=== PATIENT | female | born 1990 | race Caucasian/White ===

== ENCOUNTER 2016-12-10 09:31 | Emergency (ER) | payer SELFPAY ==
[~2016-12-10] VITALS: Ht 149.9 cm; Wt 98.9 kg
[2016-12-10 09:38] VITALS: BP 128/73
--- NOTE | 2016-12-10 09:42 | NUR ---
Patient ambulated to bed 3 with family. RN evaluating patient at bedside.
--- NOTE | 2016-12-10 09:45 | NUR ---
PATIENT PRESENTS TO ED WITH LOWER BACK PAIN X1 DAY S/P PICKING UP HER SON. DENIES N/V/D; SKIN IS PINK/WARM/DRY; AAOX4 WITH EVEN AND STEADY GAIT; LUNGS CLEAR BL; HR EVEN AND REGULAR; PT DENIES ANY FEVER, CP, SOB, OR COUGH AT THIS TIME; PATIENT STATES PAIN OF 10/10 AT THIS TIME; VSS; PATIENT POSITIONED FOR COMFORT; HOB ELEVATED; BEDRAILS UP X2; BED DOWN. ER MD MADE AWARE OF PT STATUS.
[2016-12-10 10:42] VITALS: BP 126/72
[2016-12-10 10:48] LABS: BILIRUBIN,URINE NEGATIVE (NEGATIVE); BLOOD, URINE NEGATIVE (NEGATIVE); COLOR,URINE YELLOW (YELLOW); LEUKOCYTE ESTERASE ,URINE NEGATIVE (NEGATIVE); NITRITE, URINE NEGATIVE (NEGATIVE); PH,URINE 5.5 (5.0-9.0); PROTEIN,URINE NEGATIVE (NEGATIVE); UGLUCOSE NEGATIVE (NEGATIVE); UROBILINOGEN,URINE 0.2 EU/dL (0.2 - 1)
[2016-12-10 11:04] LABS: APPEARANCE,URINE SLIGHTLY HAZY (CLEAR)
[2016-12-10 11:06] LABS: BACTERIA,URINE OCCASSIONAL /HPF (None Seen); RBC,URINE NONE SEEN /HPF (0-5); WBC,URINE 0-5 (RARE) /HPF (0-5)
== END 2016-12-10 10:42 | disposition home or self-care (01) ==
LOC: MED 09:31
DX: G89.29 Other chronic pain (principal); M54.5 Low back pain; I25.2 Old myocardial infarction
CPT/HCPCS: 72100; 81001; 81025; 99285

== ENCOUNTER 2019-05-07 16:32 | Emergency (ER) | payer SELFPAY ==
[~2019-05-07] VITALS: Ht 149.9 cm; Wt 106.7 kg
[2019-05-07 16:35] VITALS: BP 139/82
--- NOTE | 2019-05-07 17:25 | NUR ---
C/O UTI S/S X 3 DAYS. PAIN 7/10 HX-NONE NKA MEDS-AZO SKIN IS INTACT, PINK/WARM/DRY; AAOX4, PERRL, WITH EVEN AND STEADY GAIT; LUNGS CLEAR BL, BREATHING UNLABORED; HR EVEN AND REGULAR, BL PERIPHERAL PULSES PRESENT; BS ACTIVE X4. RESONANT TO PERCUSSION; PT DENIES ANY FEVER, CP, SOB, OR COUGH AT THIS TIME; PT STATES 5/10 PAIN AT THIS TIME; VSS; PATIENT POSITIONED FOR COMFORT; HOB ELEVATED; BEDRAILS UP X2; BED DOWN.
[2019-05-07 18:15] LABS: APPEARANCE,URINE CLOUDY (CLEAR); BILIRUBIN,URINE 2+ (NEGATIVE); BLOOD, URINE 3+ (NEGATIVE); COLOR,URINE RED (YELLOW); LEUKOCYTE ESTERASE ,URINE 3+ (NEGATIVE); NITRITE, URINE POSITIVE (NEGATIVE); PH,URINE 7.5 (5.0-9.0); UGLUCOSE TRACE (NEGATIVE)
[2019-05-07 18:19] VITALS: BP 127/76
--- NOTE | 2019-05-07 18:23 | NUR ---
Patient discharged with v/s stable. Written and verbal after care instructions given and explained. Patient alert, oriented and verbalized understanding of instructions. Ambulatory with steady gait. All questions addressed prior to discharge. ID band removed. Patient advised to follow up with PMD. Rx of PYRIDIUM, MACROBID given. Patient educated on indication of medication including possible reaction and side effects. Opportunity to ask questions provided and answered.
[2019-05-07 18:31] LABS: RBC,URINE TOO NUMEROUS TO COUN /HPF (0-5); WBC,URINE 20-60 /HPF (0-5)
--- NOTE | 2019-05-09 14:58 | NUR ---
URINE CULTURED REVIEWED. PT TREATED WITH APPOPRIATE MEDICATION.
== END 2019-05-07 18:23 | disposition home or self-care (01) ==
LOC: MED 16:32
DX: N39.0 Urinary tract infection, site not specified (principal); I25.2 Old myocardial infarction; Z98.890 Other specified postprocedural states
CPT/HCPCS: 81001; 81025; 87086; 87186; 99283

== ENCOUNTER 2021-03-17 23:30 | Emergency (ER) | payer SELFPAY ==
[~2021-03-17] VITALS: Ht 152.4 cm; Wt 106.1 kg
[2021-03-18 00:10] VITALS: BP 159/92
--- NOTE | 2021-03-18 01:23 | NUR ---
TO BED AMBULATORY
--- NOTE | 2021-03-18 01:30 | NUR ---
PATIENT PRESENTS TO ED WITH C/O RASH AND ITCHING . PT STATES I'VE BEEN SCRATCHING . DENIES N/V/D; RASH WITH SCRATCHING AAOX4 WITH EVEN AND STEADY GAIT; LUNGS CLEAR BL; HR EVEN AND REGULAR; PT DENIES ANY FEVER, CP, SOB, OR COUGH AT THIS TIME; VSS; PATIENT POSITIONED FOR COMFORT; HOB ELEVATED; BEDRAILS UP X2; BED DOWN. ER MD MADE AWARE OF PT STATUS.
[2021-03-18] MEDS ORDERED: methylPREDNISolone SS 125 MG/2 ML VIAL IVP ONE (01:45)
[2021-03-18] MEDS ORDERED: diphenhydrAMINE 50 MG/ML VIAL IM ONE (01:45)
[2021-03-18] MEDS ORDERED: CLOT1CRE90 TP (01:51)
[2021-03-18] MEDS ORDERED: MUPI2CRE22 TP (01:51)
[2021-03-18] MEDS ORDERED: ATA25 PO (01:51)
[2021-03-18] MEDS ORDERED: SULF-59 PO (01:51)
[2021-03-18] MEDS ORDERED: CEPH-588 PO (01:51)
[2021-03-18] MEDS ORDERED: HYD1C TP (01:55)
--- NOTE | 2021-03-18 02:13 | NUR ---
MEDICATED PER ERMDS ORDER, TOLERATED WELL, BENADRYL WAS GIVEN IVP ERMD NOTED
[2021-03-18 03:00] VITALS: BP 132/80
--- NOTE | 2021-03-18 03:00 | NUR ---
Patient discharged with v/s stable. Written and verbal after care instructions given and explained. Patient alert, oriented and verbalized understanding of instructions. Ambulatory with steady gait. All questions addressed prior to discharge. ID band removed. Patient advised to follow up with PMD. Rx of KEFLEX ATARAX, CLOTRIMAZOLE, MUPIROCIN, BACTRIM DS, given. Patient educated on indication of medication including possible reaction and side effects. Opportunity to ask questions provided and answered.
== END 2021-03-18 03:00 | disposition home or self-care (01) ==
LOC: MED 23:30
DX: L20.9 Atopic dermatitis, unspecified (principal); L98.9 Disorder of the skin and subcutaneous tissue, unspecified; I25.2 Old myocardial infarction
CPT/HCPCS: 96372; 96374; 99284; J1200; J2930

== ENCOUNTER 2021-03-22 03:35 | Inpatient (IN) | payer MEDICAID, SELFPAY ==
[~2021-03-22] VITALS: Ht 149.9 cm; Wt 107.5 kg
[~2021-03-22 03:35] MED LIST: ATA25 PO; CEPH-588 PO; CLOT1CRE90 TP; HYD1C TP; MUPI2CRE22 TP; SULF-59 PO
[2021-03-22 03:40] VITALS: BP 124/75
--- NOTE | 2021-03-22 03:40 | NUR ---
TO BED AMBULATORY
--- NOTE | 2021-03-22 03:45 | NUR ---
REDNESS , SWELLING PAIN ON BILATERAL LEGS FOR 3 DAYS, S/P INSECT BITES. PATIENT ALSO HAS RASHES AND SWELLING ON NECK AND LEFT ARM. PATIENT 10/10 PAIN THAT IS BURNING AND THROBBING. BEHIND THE KNEES, PATIENT HAD SOME OOZING. PATIENT REPORTS IT HAS BEEN GOING ON FOR 3WKS AND HAS CONTINUED TO WORSEN EVEN WITH ANTIBIOTICS. PATIENT DENIES TAKING ANY PAIN MEDICATION. AAOX4. PMH DENIES NKA
[2021-03-22] MEDS ORDERED: ONDANSETRON 4 MG/2 ML VIAL IVP ONE (04:05)
[2021-03-22] MEDS ORDERED: MORPHINE SULFATE 4 MG/ML SYR IVP ONE (04:05)
[2021-03-22] MEDS ORDERED: VANCOMYCIN 1,000 MG in DEXTROSE 5% 250 ML IV ONE (04:05)
[2021-03-22 04:39] LABS: BASOPHILS # (AUTO) 0.1 K/uL (0.00-0.22); EOSINOPHILS # (AUTO) 1.1 K/uL (0-0.4); EOSINOPHILS % (AUTO) 9.5 % (0.0-4.0); HEMATOCRIT 40.6 % (36-48); HEMOGLOBIN 13.7 g/dL (12.0-16.0); LYMPHOCYTES # (AUTO) 3.3 K/uL (2.5-16.5); LYMPHOCYTES % (AUTO) 29.2 % (20.5-51.1); MEAN CORPUSCULAR HEMOGLOBIN 30 pg (27-31); MEAN CORPUSCULAR HGB CONC 34 g/dL (33-37); MEAN CORPUSCULAR VOLUME 88.5 fL (80-94); MONOCYTES # (AUTO) 0.8 K/uL (0.8-1.0); MONOCYTES % (AUTO) 6.7 % (1.7-9.3); NEUTROPHILS # (AUTO) 6.1 K/uL (1.8-7.7); NEUTROPHILS % (AUTO) 53.6 % (42.2-75.2); PLATELET COUNT (AUTO) 473 K/uL (140-450); RED BLOOD CELL COUNT(AUTO) 4.59 MIL/uL (4.20-5.40); RED CELL DISTRIBUTION WIDTH 12.8 % (11.6-13.7); WHITE BLOOD COUNT (AUTO) 11.3 K/uL (4.8-10.8)
--- NOTE | 2021-03-22 04:45 | NUR ---
patient to bathroom
[2021-03-22] MEDS ORDERED: KETOROLAC 30 MG/ML VIAL IVP ONE (04:50)
[2021-03-22] MEDS ORDERED: cefTRIAXone 1,000 MG VIAL ONE (04:54)
[2021-03-22 04:55] LABS: ALBUMIN 3.5 g/dL (3.4-5.0); CARBON DIOXIDE 24.3 mmol/L (21-32); POTASSIUM 3.3 mmol/L (3.5-5.1); TOTAL BILIRUBIN 0.9 mg/dL (0.0-1.0)
[2021-03-22] MEDS ORDERED: VANCOMYCIN 1,000 MG VIAL ONE (05:45)
--- NOTE | 2021-03-22 05:56 | NUR ---
Patient appears to be resting comfortably in bed. Vital Signs within normal limits. Respirations even and unlabored. Safety measures are in place. Will continue to monitor patient
--- NOTE | 2021-03-22 07:12 | NUR ---
Report and continuation of care received from FREDY [place].
--- NOTE | 2021-03-22 07:20 | NUR ---
Patient resting in position of comfort; denies any pain at this time. VSS. distributor advertising material in place. Bed locked in lowest position, side rails x 1, call light in reach.
[2021-03-22] MEDS ORDERED: ACETAMINOPHEN 325 MG TAB PO PRN (08:15)
[2021-03-22] MEDS ORDERED: guaiFENesin DM 200/20 MG-10 ML 10 ML UDC PO PRN (08:15)
[2021-03-22] MEDS ORDERED: DOCUSATE SODIUM 100 MG GELCAP PO PRN (08:15)
[2021-03-22] MEDS ORDERED: HYDROcodone/APAP 7.5/325 MG 1 TAB PO PRN (08:15)
[2021-03-22] MEDS ORDERED: POTASSIUM CHLORIDE 10 MEQ TABER PO PRN (08:15)
--- NOTE | 2021-03-22 08:45 | NUR ---
Provided with water cup for urine sample. Patient states unable to void at this time.
--- NOTE | 2021-03-22 08:51 | NUR ---
Patient ambulated to restroom with steady/even gait for urine sample.
--- NOTE | 2021-03-22 08:56 | NUR ---
MRSA swab and UA collected, handed to Misael, CPT at ER bedside.
--- NOTE | 2021-03-22 09:14 | NUR ---
Dr. Nathan is evaluating the patient at bedside.
[2021-03-22 09:24] LABS: APPEARANCE,URINE CLEAR (CLEAR); BILIRUBIN,URINE NEGATIVE (NEGATIVE); BLOOD, URINE NEGATIVE (NEGATIVE); COLOR,URINE YELLOW (YELLOW); LEUKOCYTE ESTERASE ,URINE NEGATIVE (NEGATIVE); NITRITE, URINE NEGATIVE (NEGATIVE); PH,URINE 6.5 (5.0-9.0); UGLUCOSE NEGATIVE (NEGATIVE)
--- NOTE | 2021-03-22 09:30 | NUR ---
Patient resting in position of comfort; denies any pain at this time. VSS. front desk monitor in place. Bed locked in lowest position, side rails x 1, call light in reach.
--- NOTE | 2021-03-22 09:33 | NUR ---
farm equipment service technician at bedside.
[2021-03-22] MEDS: NACL 0.9% 1,000 ML IV SCH ×2 (09:38→18:51)
[2021-03-22] MEDS: CLINDAMYCIN 900 MG in DEXTROSE 5% 100 ML IV SCH ×3 (09:38→20:41)
[2021-03-22] MEDS: PANTOPRAZOLE 40 MG TABEC PO SCH (10:03)
[2021-03-22 10:29] LABS: BARBITURATE, URINE NEGATIVE ng/ml (NEG <=200); BENZODIAZEPINE, URINE NEGATIVE ng/mL (NEG <=200); CANNABINOID, URINE POSITIVE ng/mL (NEG <=50); COCAINE, URINE NEGATIVE ng/mL (NEG <=300); OPIATE, URINE NEGATIVE ng/mL (NEG <=2000); PHENCYCLIDINE SCREEN,URINE NEGATIVE ng/mL (NEG <=25)
--- NOTE | 2021-03-22 10:30 | NUR ---
Patient resting in position of comfort; denies any pain at this time. VSS. asphalt layer in place. Bed locked in lowest position, side rails x 1, call light in reach.
[2021-03-22] MEDS: LEVOFLOXACIN 750 MG/D5W PREMIX 150 ML IV SCH (10:54)
[2021-03-22 11:07] LABS: CHOL/HDL RATIO 3.9 (1-4.5); FREE T4 (FREE THYROXINE) 0.77 ng/dL (0.76-1.46); MAGNESIUM 2.1 mg/dL (1.8-2.4); PHOSPHORUS 3.4 mg/dL (2.5-4.9); THYROID STIMULATING HORMONE 1.46 uIU/mL (0.34-3.74)
[2021-03-22 11:37] LABS: PROTHROMBIN TIME 9.1 secs (10.8-13.4)
--- NOTE | 2021-03-22 11:42 | NUR ---
Patient resting in position of comfort semi-fowlers. IVPB ABX continued; telemetry monitor in place. Bed locked in lowest position, side rails x 1, call light in reach.
--- NOTE | 2021-03-22 12:00 | NUR ---
Meal tray at bedside.
--- NOTE | 2021-03-22 12:10 | NUR ---
Patient reports itchiness to neck and left arm. Redness noted. No respiratory distress noted; SpO2 99% on room air. RR 15 even/unlabored. Bed locked in lowest position, side rails x 1, call light in reach.
--- NOTE | 2021-03-22 12:17 | NUR ---
Patient states itchiness symptoms to neck and left arm resolved. Patient completing meal at this time. playground monitor in place; VSS. RR even/unlabored. Bed locked in lowest position, side rails x 1, call light in reach.
--- NOTE | 2021-03-22 12:23 | NUR ---
Patient ambulated to restroom with steady/even gait.
--- NOTE | 2021-03-22 13:30 | NUR ---
Patient resting in position of comfort; denies any pain at this time. VSS. patient monitor in place. Bed locked in lowest position, side rails x 1, call light in reach.
--- NOTE | 2021-03-22 14:28 | NUR ---
Patient resting in position of comfort; denies any pain at this time. VSS. practice clinician in place. Bed locked in lowest position, side rails x 1, call light in reach.
--- NOTE | 2021-03-22 15:40 | NUR ---
Patient with both eyes closed in position of comfort; denies any pain at this time. VSS. nurse monitoring in place. Bed locked in lowest position, side rails x 1, call light in reach.
--- NOTE | 2021-03-22 16:14 | NUR ---
Patient will be admitted to care of Dr. Nathan. Admited to Med-Surg. Will go to room 119-A. Belongings list completed. Report to FREDY Edmondson.
--- NOTE | 2021-03-22 16:14 | NUR ---
Report given to FREDY Edmondson. Advised of 5 minute ETA.
--- NOTE | 2021-03-22 16:14 | NUR ---
Luis () contacted and provided status update and room # 119A.
--- NOTE | 2021-03-22 16:35 | NUR ---
PATIENT RECEIVED VIA WHEELCHAIR BY ED EMT. PATIENT ALERT, ABLE TO MAKE NEEDS, KNOWN. BREATHING EVEN AND UNLABORED, NO SIGNS OF ACUTE DISTRESS NOTED ON RA. SWELLING AND REDNESS NOTED TO BLE, L ARM AND NECK AREA. R AC 20G, SL. ADMITTING VITALS: BP 121/70, HR 60, SPO2 98%, RR 18, TEMP 98.3, DENIES PAIN AT THIS TIME. PATIENT ORIENTED TO UNIT, SAFETY MEASURES IN PLACE.
--- NOTE | 2021-03-22 19:30 | NUR ---
ENDORSED TO NIGHTSHIFT NURSE FOR CONTINUITY OF CARE. PATIENT STABLE AT THIS TIME.
--- NOTE | 2021-03-22 19:31 | NUR ---
RECEIVED PATIENT FROM AM NURSE FOR CONTINUITY OF CARE. PATIENT A/A/O X4. RESPIRATORY EVEN AND UNLABORED, ON ROOM AIR. NO SIGN OF RESPIRATORY DISTRESS NOTED. SKIN WARM, DRY, NON DIAPHORETIC. SWELLING AND REDNESS NOTED ON BILATERAL LOWER EXTREMITIES, LEFT ARM, AND NECK. IV ON RIGHT AC 20G, INTACT AND PATENT, IS INFUSING FLUID ORDER. PATIENT CONTINENT. DENIES ANY PAIN OR DISCOMFORT. ABLE TO MAKE NEEDS KNOWN. PLAN OF CARE DISCUSSED, PATIENT VERBALIZED UNDERSTANDING. CALL LIGHT WITHIN REACH. WILL CONTINUE TO MONITOR.
[2021-03-22 20:00] VITALS: BP 138/62
--- NOTE | 2021-03-22 20:41 | NUR ---
SCHEDULE MEDICATION GIVEN WITH EDUCATION. PATIENT VERBALIZED UNDERSTANDING. CALL LIGHT WITHIN REACH. WILL CONTINUE TO MONITOR.
[2021-03-22] MEDS ORDERED: ZOLPIDEM 5 MG TAB PO PRN (21:00)
--- NOTE | 2021-03-22 22:00 | NUR ---
PATIENT IS AWAKE, RESTING IN BED, NO SIGN OF RESPIRATORY DISTRESS NOTED. CALL LIGHT WITHIN REACH. WILL CONTINUE TO MONITOR.
--- NOTE | 2021-03-23 | NUR ---
PATIENT IS SLEEPING, CHEST RISE AND FALL, NO SIGN OF DISTRESS NOTED. CALL LIGHT WITHIN REACH. WILL CONTINUE TO MONITOR.
--- NOTE | 2021-03-23 02:00 | NUR ---
ROUND CHECK. PATIENT IS SLEEPING, CHEST RISE AND FALL. AROUSABLE TO VOICE. NO SIGN OF DISTRESS NOTED. CALL LIGHT WITHIN REACH. WILL CONTINUE TO MONITOR.
[2021-03-23 04:00] VITALS: BP 115/70
[2021-03-23] MEDS: NACL 0.9% 1,000 ML IV SCH ×2 (04:15→13:58)
[2021-03-23] MEDS: CLINDAMYCIN 900 MG in DEXTROSE 5% 100 ML IV SCH ×3 (05:00→20:39)
--- NOTE | 2021-03-23 05:00 | NUR ---
SCHEDULE MEDICATION GIVEN WITH EDUCATION. PATIENT VERBALIZED UNDERSTANDING. CALL LIGHT WITHIN REACH. WILL CONTINUE TO MONITOR.
[2021-03-23 05:33] LABS: BASOPHILS # (AUTO) 0.1 K/uL (0.00-0.22); BASOPHILS % (AUTO) 0.5 % (0.0-2.0); EOSINOPHILS # (AUTO) 1.4 K/uL (0-0.4); EOSINOPHILS % (AUTO) 14.4 % (0.0-4.0); HEMATOCRIT 40.3 % (36-48); HEMOGLOBIN 13.7 g/dL (12.0-16.0); LYMPHOCYTES # (AUTO) 2.8 K/uL (2.5-16.5); LYMPHOCYTES % (AUTO) 29.3 % (20.5-51.1); MEAN CORPUSCULAR HEMOGLOBIN 30 pg (27-31); MEAN CORPUSCULAR HGB CONC 34 g/dL (33-37); MEAN CORPUSCULAR VOLUME 87.8 fL (80-94); MONOCYTES # (AUTO) 0.7 K/uL (0.8-1.0); MONOCYTES % (AUTO) 7.1 % (1.7-9.3); NEUTROPHILS # (AUTO) 4.7 K/uL (1.8-7.7); NEUTROPHILS % (AUTO) 48.7 % (42.2-75.2); PLATELET COUNT (AUTO) 423 K/uL (140-450); RED BLOOD CELL COUNT(AUTO) 4.59 MIL/uL (4.20-5.40); RED CELL DISTRIBUTION WIDTH 12.8 % (11.6-13.7); WHITE BLOOD COUNT (AUTO) 9.6 K/uL (4.8-10.8)
[2021-03-23 05:40] LABS: ANION GAP 11.4 (8-16); CARBON DIOXIDE 24.9 mmol/L (21-32); CREATININE 0.8 mg/dL (0.6-1.3); POTASSIUM 4.3 mmol/L (3.5-5.1)
[2021-03-23 06:07] LABS: T4 (THYROXINE) 6.2 ug/dL (4.5-12.0)
--- NOTE | 2021-03-23 07:05 | NUR ---
ENDORSED PATIENT TO AM NURSE FOR CONTINUITY OF CARE. PATIENT IS STABLE.
--- NOTE | 2021-03-23 07:10 | NUR ---
RECEIVE REPORT FROM CHEMICAL LABORATORY CHIEF NURSE FOR CONTINUITY OF CARE. PATIENT SLEEPING. BREATHING EVEN AND UNLABORED. ALL SAFETY MEASURES IN PLACE. WILL CONTINUE TO MONITOR.
--- NOTE | 2021-03-23 09:12 | NUR ---
PATIENT HAS BEEN SCREENED AND CATEGORIZED LOW NUTRITION RISK. PATIENT WILL BE SEEN WITHIN 7 DAYS OF ADMISSION. 03/28/[address]
[2021-03-23] MEDS: PANTOPRAZOLE 40 MG TABEC PO SCH (09:18)
[2021-03-23] MEDS: LEVOFLOXACIN 750 MG/D5W PREMIX 150 ML IV SCH (09:19)
--- NOTE | 2021-03-23 09:25 | NUR ---
PATIENT IN BED. ROUTINE MEDICATION GIVEN. PATIENT DENIES PAIN AT THIS TIME. ALL SAFETY MEASURES IN PLACE. WILL CONTINUE TO MONITOR.
--- NOTE | 2021-03-23 12:30 | NUR ---
PATIENT IN BED HAVING LUNCH. NO ACUTE DISTRESS NOTED. ALL SAFETY MEASURES IN PLACE. WILL CONTINUE TO MONITOR.
--- NOTE | 2021-03-23 14:50 | NUR ---
PATIENT ON PHONE. NO ACUTE DISTRESS NOTED. ALL SAFETY MEASURES IN PLACE. WILL CONTINUE TO MONITOR.
[2021-03-23 16:35] VITALS: BP 109/52
--- NOTE | 2021-03-23 16:42 | NUR ---
PATIENT ALERT AND AWAKE. BREATHING EVEN AND UNLABORED. ALL SAFETY MEASURES IN PLACE. WILL CONTINUE TO MONITOR.
[2021-03-23] MEDS ORDERED: HYDROCORTISONE 1% OINT 30 GM TUBE TP PRN (19:00)
--- NOTE | 2021-03-23 19:15 | NUR ---
ENDORSED REPORT TO CLINICAL NURSING MANAGER NURSE FOR CONTINUITY OF CARE. PATIENT STABLE. ALL SAFETY MEASURES IN PLACE.
--- NOTE | 2021-03-23 19:16 | NUR ---
RECEIVED BEDSIDE ENDORSEMENT FROM AM SHIFT RN, PATIENT IS AAOX4, ON ROOM AIR, O2 SAT WNL, IV SITE INTACT, IVF INFUSING, PATENT, W/ REDNESS AT THE BACK OF BOTH KNEES, NECK, LEFT ARM, AMBULATORY, DENIES PAIN, SAFETY MEASURES IN PLACE, PLAN OF CARE DISCUSSED, LOW BED IN PLACE, CALL LIGHT WITHIN REACH.
--- NOTE | 2021-03-23 20:39 | NUR ---
PATIENT IS WATCHING TV, DUE MEDS GIVEN ORDERED, NO TOLERATED WELL, NO A/R NOTED, MED EDUCATION PROVIDED, VERBALIZED UNDERSTANDING, KEPT COMFORTABLE, CALL LIGHT WITHIN REACH.
[2021-03-24] MEDS: NACL 0.9% 1,000 ML IV SCH ×2 (00:17→10:15)
--- NOTE | 2021-03-24 00:23 | NUR ---
Ivf finished, hanged a new bag of NS AT 100ML/HR ORDERED, PATIENT IS ASLEEP.
--- NOTE | 2021-03-24 02:30 | NUR ---
SLEEPING, NOTED CHEST RISE, CALL LIGHT WITHIN REACH.
[2021-03-24 04:00] VITALS: BP 115/69
[2021-03-24] MEDS: ONDANSETRON 4 MG/2 ML VIAL IM/IVP PRN ×2 (05:17→10:05)
[2021-03-24] MEDS: CLINDAMYCIN 900 MG in DEXTROSE 5% 100 ML IV SCH ×2 (05:25→13:35)
--- NOTE | 2021-03-24 05:28 | NUR ---
C/O MILD HEADACHE 11/04, TYLENOL GIVEN PER PT REQUEST. ALSO FEELS NAUSEOUS, ZOFRAN IVP PRN GIVEN ORDERED, DUE MEDS GIVEN ORDERED, NO A/R NOTED, CALL LIGHT WITHIN REACH.
[2021-03-24 05:54] LABS: BASOPHILS # (AUTO) 0.1 K/uL (0.00-0.22); BASOPHILS % (AUTO) 0.6 % (0.0-2.0); EOSINOPHILS # (AUTO) 1.1 K/uL (0-0.4); EOSINOPHILS % (AUTO) 10.1 % (0.0-4.0); HEMATOCRIT 41.2 % (36-48); LYMPHOCYTES # (AUTO) 2.9 K/uL (2.5-16.5); MEAN CORPUSCULAR HEMOGLOBIN 30 pg (27-31); MEAN CORPUSCULAR HGB CONC 34 g/dL (33-37); MEAN CORPUSCULAR VOLUME 88.6 fL (80-94); MONOCYTES # (AUTO) 0.7 K/uL (0.8-1.0); NEUTROPHILS # (AUTO) 5.9 K/uL (1.8-7.7); NEUTROPHILS % (AUTO) 55.3 % (42.2-75.2); PLATELET COUNT (AUTO) 475 K/uL (140-450); RED BLOOD CELL COUNT(AUTO) 4.65 MIL/uL (4.20-5.40); RED CELL DISTRIBUTION WIDTH 13.2 % (11.6-13.7); WHITE BLOOD COUNT (AUTO) 10.7 K/uL (4.8-10.8)
[2021-03-24 05:57] LABS: ANION GAP 12.4 (8-16); CARBON DIOXIDE 26.3 mmol/L (21-32); CREATININE 0.7 mg/dL (0.6-1.3); POTASSIUM 3.7 mmol/L (3.5-5.1)
[2021-03-24] MEDS ORDERED: HYDROCORTISONE 1% OINT 30 GM TUBE TP PRN (07:13)
--- NOTE | 2021-03-24 07:15 | NUR ---
RECEIVED REPORT FROM VALVE SEATER OPERATOR NURSE FOR CONTINUITY OF CARE. PATIENT IS SLEEPING. BREATHING IS EVEN AND UNLABORED. ALL SAFETY MEASURES IN PLACE. WILL CONTINUE TO MONITOR.
--- NOTE | 2021-03-24 07:25 | NUR ---
PATIENT STABLE, ALL NEEDS ATTENDED, KEPT COMFORTABLE, CALL LIGHT WITHIN REACH, BEDSIDE ENDORSEMENT GIVEN TO AM SHIFT RN FOR CONTINUITY OF CARE.
--- NOTE | 2021-03-24 08:50 | NUR ---
PATIENT SLEEPING. NO ACUTE DISTRESS NOTED. ALL SAFETY MEASURES IN PLACE. WILL CONTINUE TO MONITOR.
[2021-03-24] MEDS: LEVOFLOXACIN 750 MG/D5W PREMIX 150 ML IV SCH (10:05)
[2021-03-24] MEDS: PANTOPRAZOLE 40 MG TABEC PO SCH (10:05)
--- NOTE | 2021-03-24 10:05 | NUR ---
PATIENT AWAKE. ROUTINE MEDICATION GIVE. ALL SAFETY MEASURES IN PLACE. WILL CONTINUE TO MONITOR.
[2021-03-24] MEDS ORDERED: LEVO750T51 PO (10:29)
[2021-03-24] MEDS ORDERED: CLIN300C2 PO (10:29)
[2021-03-24 12:00] VITALS: BP 124/80
--- NOTE | 2021-03-24 12:15 | NUR ---
PATIENT IN BED HAVING LUNCH. NO ACUTE DISTRESS NOTED. ALL SAFETY MEASURES IN PLACE. WILL CONTINUE TO MONITOR.
--- NOTE | 2021-03-24 14:38 | NUR ---
DC PLANNING: PATIENT ADMITTED FOR CELLULITIS S/P INSECT BITES AND FAILED OP TREATMENT. LIVES IN A SINGLE STORY HOUSE WITH HER EXTENDED FAMILY AND CHILDREN, INCOME SOURCE OF CHILD SUPPORT. PATIENT IS UNINSURED AND DOES NOT HAVE A REGULAR PCP, WILL FOLLOW UP WITH M/ARUN APPLICATION. PATIENT WILL DC HOME, NO NEEDS IDENTIFIED, CM WILL CONTINUE TO FOLLOW.
--- NOTE | 2021-03-24 15:30 | NUR ---
PATIENT DISCHARGED HOME. DISCHARGED WITH INSTRUCTIONS. ALL DOCUMENTS GIVEN. PATIENT VERBALIZE UNDERSTANDING. ALL BELONGING IN HAND. IV REMOVED CATHETER INTACT. WRIST BAND CUT OFF. PATIENT WHEELED TO THE FRONT LOBBY. FAMILY PICKED UP PATIENT.
== END 2021-03-24 15:31 | disposition home or self-care (01) | DRG 720 ==
LOC: MED 03:35 → MMU 05:01 → MTU 16:03
PROVIDERS: ADMIT Family Medicine; ATTEND Family Medicine
DX: A41.9 Sepsis, unspecified organism (principal); E83.51 Hypocalcemia; L03.115 Cellulitis of right lower limb; L03.116 Cellulitis of left lower limb; E87.6 Hypokalemia; L03.114 Cellulitis of left upper limb; L03.113 Cellulitis of right upper limb; R73.9 Hyperglycemia, unspecified; S80.862A Insect bite (nonvenomous), left lower leg, initial encounter; L29.9 Pruritus, unspecified; S80.861A Insect bite (nonvenomous), right lower leg, initial encounter; E78.1 Pure hyperglyceridemia; F12.90 Cannabis use, unspecified, uncomplicated; Z20.822 Contact with and (suspected) exposure to COVID-19; Z79.899 Other long term (current) drug therapy; I25.2 Old myocardial infarction; Z98.891 History of uterine scar from previous surgery; Z83.3 Family history of diabetes mellitus; Z82.49 Family history of ischemic heart disease and other diseases of the circulatory system; Z82.0 Family history of epilepsy and other diseases of the nervous system; Y92.009 Unspecified place in unspecified non-institutional (private) residence as the place of occurrence of the external cause
CPT/HCPCS: 36415; 71045; 80048; 80053; 80305; 81003; 82150; 83036; 83605; 83690; 83735; 83880; 84100; 84436; 84439; 84443; 84479; 84484; 84703; 85025; 85610; 85730; 87040; 87081; 93005; 96365; 96367; 96375; 99285; J0696; J1885; J1956; J2405; J3370; J3490; J7060

== ENCOUNTER 2021-12-23 09:39 | Emergency (ER) | payer MEDICAID ==
[~2021-12-23] VITALS: Ht 149.9 cm; Wt 102.5 kg
[~2021-12-23 09:39] MED LIST changes: -ATA25 PO; -CEPH-588 PO; +CLIN300C2 PO; -HYD1C TP; +LEVO750T51 PO; -SULF-59 PO
--- NOTE | 2021-12-23 09:47 | NUR ---
PT W/C ASSISTED TO ER BED 10 FOR BEDSIDE TRIAGE.
[2021-12-23 09:50] VITALS: BP 154/72
--- NOTE | 2021-12-23 09:55 | NUR ---
31 Y/O FEMALE C/O RIGHT KNEE PAIN 10/ S/P MISTEPPING ATGYM WHILE RUNNING DAY. DENIES FEVER/CHILLS. DENIES N/V. DENIES PMH NKA
--- NOTE | 2021-12-23 10:11 | NUR ---
TONG HOOKER AT PT BEDSIDE.
--- NOTE | 2021-12-23 10:20 | NUR ---
DR. FONSECA AT PT BEDSIDE FOR FURTHER EVALUATION.
[2021-12-23] MEDS ORDERED: IBUP-2213 PO (11:15)
--- NOTE | 2021-12-23 11:38 | NUR ---
Patient discharged with v/s stable. Written and verbal after care instructions ABOUT NONDISPLACED TIBIAL PLATEAU FRACTURE given and explained. Patient alert, oriented and verbalized understanding of instructions. Ambulatory with steady gait WITH CRUTCHES. All questions addressed prior to discharge. ID band removed. Patient advised to follow up with PMD. Rx of MOTRIN given. Patient educated on indication of medication including possible reaction and side effects. Opportunity to ask questions provided and answered. CD OF XRAYS GIVEN AND WORK NOTE TILL 01/07
== END 2021-12-23 11:38 | disposition home or self-care (01) ==
LOC: MED 09:39
DX: S82.144A Nondisplaced bicondylar fracture of right tibia, initial encounter for closed fracture (principal); E66.01 Morbid (severe) obesity due to excess calories; I25.2 Old myocardial infarction; Z79.899 Other long term (current) drug therapy; Z68.42 Body mass index [BMI] 45.0-49.9, adult; X58.XXXA Exposure to other specified factors, initial encounter; Y93.02 Activity, running; Y92.89 Other specified places as the place of occurrence of the external cause; Y99.8 Other external cause status
CPT/HCPCS: 73562; 99283